=== PATIENT | male | born 1955 | race Caucasian/White ===

== ENCOUNTER 2020-07-11 19:11 | Inpatient (IN) | payer OTHER ==
[~2020-07-11] VITALS: Ht 175.3 cm; Wt 92.1 kg
[~2020-07-11 19:11] MED LIST: FLEXERIL PO; KEFLEX500 M1 PO; NORCO 5-325 TA1 EACH PO
[2020-07-11 19:39] VITALS: BP 108/42
[2020-07-11 19:55] LABS: URINE BLOOD TRACE (Negative); URINE CLARITY SL CLOUDY; URINE COLOR DARK YELLOW; URINE GLUCOSE-RANDOM NEGATIVE (Negative); URINE KETONES TRACE (Negative); URINE LEUKOCYTES-REFLEX NEGATIVE (Negative); URINE PROTEIN TRACE (Negative); URINE SPECIFIC GRAVITY 1.025 (1.005-1.030)
[2020-07-11 19:59] LABS: URINE BILIRUBIN 2+ (Negative); URINE NITRITE-REFLEX POSITIVE (Negative)
[2020-07-11 20:02] LABS: HEMATOCRIT 37.8 % (42.0-52.0); HEMOGLOBIN 12.6 gm/dL (14.0-18.0); MCH 33.4 pg (26.0-34.0); MCHC 33.4 g/dL (28.0-37.0); MCV 99.8 fL (80.0-100.0); MPV 9.4 fl. (7.2-11.1); NUCLEATED RBCS 0 /100WBC; PLATELET COUNT* 108 thou/uL (150-400); RBC 3.78 mil/uL (4.50-6.00); RDW-CV 15.7 % (10.5-14.5); WBC 4.2 thou/uL (4.0-11.0)
[2020-07-11 20:13] LABS: ICTOTEST (BILI CONFIRMATORY) Positive (Negative)
[2020-07-11 20:16] LABS: INR 1.4; PROTIME 14.6 Seconds (9.20-11.50)
[2020-07-11 20:27] LABS: BE -2.3 mmol/L (-2 to +3); PO2 100.6 mmHg (75.0-100.0); pH 7.485 (7.340-7.450)
[2020-07-11 21:00] LABS: HYALINE CASTS >10 Many /LPF (None Seen)
[2020-07-11 21:01] LABS: BACTERIA-REFLEX 1-9 Few /HPF (None Seen); CRYSTALS None Seen /LPF (None Seen); MUCUS 0-3 Light strn/LPF (None Seen); SQUAMOUS 4-10 Moderate /LPF (0-3); URINE RBC 0-2 Rare /HPF (0-2); URINE WBC-REFLEX 0-5 Rare /HPF (0-5)
[2020-07-11 21:10] LABS: CALCIUM 8.5 mg/dL (8.5-10.1); CREATININE 1.4 mg/dL (0.6-1.3); POTASSIUM 3.9 mmol/L (3.5-5.1)
[2020-07-11 21:20] LABS: ALBUMIN 2.7 g/dL (3.4-5.0); MAGNESIUM 1.4 mg/dL (1.8-2.4); TOTAL BILIRUBIN 3.8 mg/dL (<0.1-1.0); TOTAL PROTEIN 7.2 g/dL (6.4-8.2)
[2020-07-11 21:33] LABS: ABSOLUTE LYMPHOCYTES 0.4 thou/uL (0.8-5.3); ABSOLUTE NEUTROPHILS 3.7 thou/uL (1.6-8.1)
[2020-07-11 21:34] LABS: PLATELET ESTIMATE ADEQUATE
[2020-07-11 23:53] VITALS: BP 95/62
[2020-07-12] VITALS (111 sets, daily range): BP systolic 50–132; BP diastolic 31–102
[2020-07-12 10:47] LABS: HEMATOCRIT 33.2 % (42.0-52.0); HEMOGLOBIN 11.1 gm/dL (14.0-18.0); MCH 33.7 pg (26.0-34.0); MCHC 33.5 g/dL (28.0-37.0); MCV 100.6 fL (80.0-100.0); NUCLEATED RBCS 0 /100WBC; PLATELET COUNT* 101 thou/uL (150-400); WBC 25.3 thou/uL (4.0-11.0)
[2020-07-12 11:00] LABS: CALCIUM 7.2 mg/dL (8.5-10.1); CREATININE 1.7 mg/dL (0.6-1.3); MAGNESIUM 1.1 mg/dL (1.8-2.4); PHOSPHORUS* 3.8 mg/dL (2.5-4.9); TOTAL BILIRUBIN 3.2 mg/dL (<0.1-1.0); TOTAL PROTEIN 5.9 g/dL (6.4-8.2)
[2020-07-12 11:10] LABS: ABSOLUTE MONOCYTES 0.8 thou/uL (0.0-1.2); ABSOLUTE NEUTROPHILS 23.5 thou/uL (1.6-8.1); ATYPICAL LYMPHS 3 %; PLATELET ESTIMATE ADEQUATE
--- NOTE | 2020-07-12 12:48 | CON ---
[address] [address] CONSULTATION Name: KIMBERLY MERCADO Room: [address] IN M.R.#: [id number] Admission: 07/11/20 Attend Phys: Delmi Lea MD Discharge: Date of : 57 Report #: [id number] THIS REPORT FOR: //name// cc: Bentley Song MD, Joseph G. MD ~ THIS REPORT FOR: //name// CC: Bentley Lea DATE OF SERVICE: 07/12/2020 CONSULT REQUESTED BY: Petey Rodriguez MD INDICATION FOR CONSULTATION: Acute respiratory failure/pulmonary infiltrates/pneumonia. HISTORY OF PRESENT ILLNESS: This is a 64-year-old gentleman. He has a previous history of diabetes as well as benign prostatic hypertrophy. The patient, however, does not have a previous history of cardiac or respiratory disease. The patient has now been sick for the last several months. The patient's primary complaint has been an increase in shortness of breath. [facility] and a [facility]esis was performed at the [facility], was found to have a large pleural effusion on the right side. I do have the records available and it shows transudative fluid, cytology was still pending. He has just had thoracentesis performed about a week ago. The patient now presented to this hospital with acute increase in shortness of breath. The patient also was noted to have a high-grade fever up to 39.6 degrees Celsius. He on presentation was found to be hypotensive. Currently, despite the fact that he has received 3 liters of fluid overnight, the patient is on Levophed at 18 mcg to maintain blood pressure. He has had minimal urine output and his creatinine is rising. His baseline creatinine is 1.0 and we are up to 1.7 now. The patient reports no other complaints other than shortness of breath, although he does appear to be comfortable on 3 liters oxygen via nasal cannula at this time. He reports only minor cough, no sputum, no chest pain. He says he is being currently treated for a tooth abscess and has had discomfort with it. Does not have a runny nose or sore throat. There is no swelling of lower extremities. There is no calf pain. He did have one episode of vomiting. The patient does have some discomfort from the urinary catheter and did have difficulty urinating earlier. REVIEW OF SYSTEMS: For 12 points is negative except as mentioned above. PAST MEDICAL HISTORY: Diabetes, hypertension, benign prostatic hypertrophy, tonsillectomy. There is a previous echo from 2014 [place] [address] CONSULTATION Name: MERCADOKIMBERLY Room: [address] IN ..#: [id number] Admission: 07/11/20 Attend Phys: Delmi Lea MD Discharge: Date of : 57 Report #: [id number] Recent Dental Abscess SOCIAL HISTORY: The patient chews tobacco. He had an intake of 6 beers a day back in 2014, is not known to me as to whether the patient's alcohol intake is current. No known history of illegal drug use. CURRENT MEDICATIONS: The list is in [facility], reviewed. FAMILY HISTORY: There is no pertinent family history. ALLERGIES: No known drug allergies. PHYSICAL EXAMINATION: GENERAL/VITAL SIGNS: He is an alert, awake and oriented, does not appear to be in any distress at this time, but he is on 18 of Levophed and with this he is maintaining a blood pressure of only 94/52 with a pulse of 92. His respiratory rate is mildly elevated to 25. He is afebrile at 36.7, but had a high-grade fever of 39.6 overnight, the patient is on 3 liters nasal cannula and has an O2 saturation of 96%. He has not been on supplemental oxygen previously. HEENT: Head is normocephalic and atraumatic. NECK: Does not show raised JVP, asymmetry, mass or lymph nodes. CHEST: Symmetrical expansion on inspection and palpation. On auscultation, breath sounds are decreased at the right lung base. I do not hear any added sounds. HEART: Regular. There is no murmur. ABDOMEN: Soft and nontender. EXTREMITIES: Lower extremities show no edema, no calf tenderness. SKIN: Dry and intact. NEUROLOGICAL: Moves all extremities bilaterally equally and spontaneously with no focal deficit identified. LABORATORY DATA: The patient's CT chest is reviewed. There is a large pleural effusion on the right side. There may be summarized at hemidiaphragm on the right side as well. The patient does have some infiltrates. Due to the presence of these findings, I am not able to fully evaluate for any underlying mass. The patient's arterial blood gas performed yesterday shows respiratory alkalosis and metabolic acidosis. The patient's lab work from this morning is consistent with acute renal failure. The patient's D-dimer was markedly elevated. INR is 1.4. CBC in [facility] reviewed. Platelet count on the lower side at 101 is noted. The patient's coronavirus screen is negative, but PCR is pending. [facility] and this is also reviewed. ASSESSMENT AND PLAN: 1. Acute respiratory insufficiency. The etiology does need to be defined further while there are several possibilities. One possible scenario could be that the patient has an underlying hepatic hydrothorax. Considering that the [address] [address] CONSULTATION Name: MERCADOKIMBERLY Room: [address] IN .R.#: [id number] Admission: 07/11/20 Attend Phys: Delmi Lea MD Discharge: Date of : 57 Report #: [id number] pleural tap performed at the [facility] was a transudate with a protein of 1.4. However, the patient has had a high-grade fever now and at this points towards a superimposed infection, this could be bacterial pneumonia, but viral infections such as COVID-19 also need to be considered. 2. Large transudative right-sided pleural effusion. See discussion above. It was a transudate on the last thoracentesis. We will repeat tap now and see where we stand. I considered as to whether we should put in a pigtail; however, the patient has had significant hypotension and therefore, I decided to only proceed with thoracentesis now while understanding that a repeat thoracentesis or pigtail placement may be needed later. 3. Pulmonary infiltrates/high low-grade fever/Dental Abscess. The patient is on broad-spectrum antibiotics including vancomycin, Levaquin and Zosyn. I agree with the same and COVID-19 PCR is pending at this time. 4. Hypotension. I will go ahead and bolus him with albumin and see where we stand. We will continue with normal saline. If the patient remains hypotensive, then we will consider adding hydrocortisone. 5. Acute renal failure/Possible Hepatorenal Syndrome. Note that the patient's creatinine from last week is 1.0. He is in acute renal failure. We will continue with aggressive fluid resuscitation as well as albumin as above. We will also do an abdominal ultrasound. I would like to check an ABG again and then decide as to whether we need to add sodium bicarbonate, pH was in fact high last night. We will reassess and see where we stand. 6. Abnormal LFTs, significant elevation in bilirubin and also some transaminitis is noted. There was mild elevation in lipase last night, also will repeat a lipase level now. The possibility of underlying hepatic hydrothorax is considered as above. 7. Thrombocytopenia, mild decrease in platelets is noted. Follow closely. The patient is critically ill at this time. Total time spent providing critical care to this patient today exceeds 50 minutes. <ELECTRONICALLY SIGNED> By: Mello Pappas MD 07/12/20 1248 1149 1224Aruy Pappas MD /nt
--- NOTE | 2020-07-12 13:16 | EKG ---
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 : 1955 Requested By: Gela Bustos Order Number: [id number] MD: Eduardo Amato Measurements Intervals [place] Rate: 122 P: 246 RI: 104 QRS: 87 QRSD: 93 T: -19 QT: 342 QTc: 488 Interpretive Statements Sinus or ectopic atrial tachycardia Borderline right axis deviation Low voltage, extremity leads Minimal ST depression Borderline prolonged QT interval Baseline wander in lead(s) I,III,aVL,aVF No previous ECG available for comparison Electronically Signed On 07-12-2020 13:16:41 CDT by Eduardo Amato [email or web address] <ELECTRONICALLY SIGNED> By: Eduardo Amato MD, FACC 07/12/20 1316 29 29 Eduardo Amato MD, FAC /EPI
[2020-07-12 14:32] LABS: BE -10.8 mmol/L (-2 to +3); PCO2 27.4 mmHg (35.0-45.0); PO2 75.5 mmHg (75.0-100.0)
[2020-07-12 16:19] LABS: SOURCE THORACENTESIS; TOTAL VOLUME 3200 ml
[2020-07-12 16:20] LABS: CLARITY SLIGHTLY CLOUDY
[2020-07-12 16:28] LABS: BF RBC <1000 /mm3; TOTAL CELL COUNT 199 /mm3
[2020-07-12 16:56] LABS: BF LYMPHOCYTES 13 %; BF MONOCYTES 69 %; BF POLYS 18 %
[2020-07-12 18:54] LABS: ABSOLUTE LYMPHOCYTES 0.2 thou/uL (0.8-5.3); ABSOLUTE MONOCYTES 0.9 thou/uL (0.0-1.2); ABSOLUTE NEUTROPHILS 21.8 thou/uL (1.6-8.1); BASOPHILS 0.2 %; HEMATOCRIT 30.6 % (42.0-52.0); HEMOGLOBIN 10.4 gm/dL (14.0-18.0); LYMPHOCYTES 0.9 %; MCV 100.2 fL (80.0-100.0); MONOCYTES 3.9 %; MPV 10.1 fl. (7.2-11.1); NUCLEATED RBCS 0 /100WBC; PLATELET COUNT* 87 thou/uL (150-400); RBC 3.05 mil/uL (4.50-6.00); RDW-CV 15.9 % (10.5-14.5)
[2020-07-12 19:03] LABS: CALCIUM 7.5 mg/dL (8.5-10.1); CREATININE 1.6 mg/dL (0.6-1.3); POTASSIUM 4.1 mmol/L (3.5-5.1)
[2020-07-13] VITALS (84 sets, daily range): BP systolic 86–137; BP diastolic 42–94
[2020-07-13 04:57] LABS: ABSOLUTE LYMPHOCYTES 0.5 thou/uL (0.8-5.3); ABSOLUTE MONOCYTES 1.2 thou/uL (0.0-1.2); ABSOLUTE NEUTROPHILS 20.8 thou/uL (1.6-8.1); BASOPHILS 0.1 %; HEMOGLOBIN 10.3 gm/dL (14.0-18.0); LYMPHOCYTES 2.3 %; MCH 34.1 pg (26.0-34.0); MCHC 34.3 g/dL (28.0-37.0); MCV 99.3 fL (80.0-100.0); MONOCYTES 5.4 %; NUCLEATED RBCS 0 /100WBC; PLATELET COUNT* 84 thou/uL (150-400); POLYS 92.2 %; RBC 3.02 mil/uL (4.50-6.00); RDW-CV 15.8 % (10.5-14.5); WBC 22.5 thou/uL (4.0-11.0)
[2020-07-13 05:31] LABS: ALBUMIN 2.7 g/dL (3.4-5.0); CALCIUM 7.6 mg/dL (8.5-10.1); CREATININE 1.2 mg/dL (0.6-1.3); PHOSPHORUS* 2.2 mg/dL (2.5-4.9); POTASSIUM 3.9 mmol/L (3.5-5.1); TOTAL BILIRUBIN 2.9 mg/dL (<0.1-1.0); TOTAL PROTEIN 6.1 g/dL (6.4-8.2)
[2020-07-13 05:45] LABS: PHOSPHORUS* 2.2 mg/dL (2.5-4.9)
[2020-07-13 10:07] LABS: HEPATITIS B SURFACE AG Negative (Negative)
--- NOTE | 2020-07-13 10:17 | CON ---
[address] [address] CONSULTATION Name: KIMBERLY MERCADO Room: [address] IN M.R.#: [id number] Admission: 07/11/20 Attend Phys: Delmi Lea MD Discharge: Date of : 57 Report #: [id number] THIS REPORT FOR: //name// cc: Bentley Song MD, Joseph G. MD ~ THIS REPORT FOR: //name// CC: Bentley Lae CONSULTING PHYSICIAN: Dr. Lea. REASON FOR CONSULTATION: Acute kidney injury. HISTORY OF PRESENT ILLNESS: A 64-year-old gentleman who was admitted with malaise and pneumonia. He had severely low blood pressures, was recently [facility]. Had a pleural effusion and underwent thoracentesis. Here, he also has a moderate to large pleural effusion with plans for a thoracentesis today. He had a bump in his creatinine from 1.4 on admission to 1.7. He is currently requiring Levophed. He has also been started on stress-dose steroids. He did have a CT scan with IV contrast and history is obtained through chart review. REVIEW OF SYSTEMS: Constitutional, psych, heme, eyes, ENT, respiratory, cardiac, GI, , endocrine, all negative except as documented above and as best as can be ascertained from chart review. PAST MEDICAL HISTORY: Diabetes, hypertension, BPH, history of tonsillectomy. SOCIAL HISTORY: Positive for alcohol and tobacco. FAMILY HISTORY: Not pertinent in this 64-year-old gentleman. CURRENT MEDICATIONS: Reviewed. PHYSICAL EXAMINATION: VITAL SIGNS: Blood pressure is 84/50, pulse 92, respirations 25, temperature 36.7. GENERAL: No acute distress. NEUROLOGIC: Full exam is not performed as the patient is in COVID-19 precautions in an effort to preserve PPE. He was not examined, the proper PPE gowns are not available during the time of my visit with the patient. LABORATORY DATA: White cell count 25, hemoglobin 11.1, platelets 101. Sodium 134, potassium 4, chloride 103, bicarbonate 17, BUN 15, creatinine 1.7, glucose 151, calcium 7.2, magnesium 1.1, albumin 2. [place] [address] CONSULTATION Name: KIMBERLY MERCADO Room: [address] IN [facility]#: [id number] Admission: 07/11/20 Attend Phys: Delmi Lea MD Discharge: Date of : 57 Report #: [id number] ASSESSMENT: 1. Acute kidney injury with admission creatinine of 1.4. Outside records reviewed. On 06/20/2020 at the [facility], he had a creatinine of 0.8, it is up to 1.7 now on 07/12/2020. This is in the setting of high fevers and significant hypotension. He also did have 80 mL of contrast as part of a CT angiogram. 2. Hypoalbuminemia with an albumin of 2. 3. Septic shock, multifactorial with urinary tract infection, dental abscess of right lung pneumonia with pleural effusion. 4. Lactic acidosis with respiratory alkalosis and a delta gap of 2 suggesting a metabolic alkalosis. 5. Diabetes. 6. Benign prostatic hypertrophy. PLAN: 1. Hypomagnesemia. Magnesium was replaced. 2. Check abdominal ultrasound. 3. Caution vancomycin use in the setting of renal insufficiency. He is on antibiotic therapy in addition to hydrocortisone and vasopressors 4. On IV fluids. 5. Gold catheter placed. He is producing about 20 mL of urine output per hour. 6. IV albumin ordered by Pulmonary service. 7. Outpatient records reviewed. Case was discussed with Dr. Rodriguez. There was a concern for possible hepatorenal syndrome. I do not see any strong indication for this at present time and rather this is likely ischemic acute tubular necrosis in the setting of severe hypotension and shock. Thank you for requesting my opinion in the care and management of this patient. <ELECTRONICALLY SIGNED> By: William Delaney MD 07/13/20 1017 1510 1522Aleyla Delaney MD /nt
[2020-07-13 11:07] LABS: BODY FLUID AMYLASE 13 U/L (()); BODY FLUID LDH 54 IU/L (()); BODY FLUID PROTEIN 0.8 g/dL (())
[2020-07-13 12:26] LABS: BE -4.5 mmol/L (-2 to +3); PCO2 VENOUS 32.7 mmHg (41.0-51.0); PO2 VENOUS 102.1 mmHg (35.0-45.0)
--- NOTE | 2020-07-13 12:33 | 2DMMODE ---
[place] [address] 2 D/M-MODE ECHOCARDIOGRAM Name: DOE MERCADO Room: [address] IN [facility]#: [id number] Admission: 07/11/20 Attend Phys: Delmi Lea, Discharge: Date of : 57 Date of Service: 07/13/20 1233 Report #: [id number] THIS REPORT FOR: cc: Bentley Song MD, Joseph G. MD Liston, Michael J. MD [facility] ~ APPROVED REPORT Study performed: 07/13/2020 10:42:43 EXAM: Comprehensive 2D, Doppler, and color-flow Echocardiogram Patient Location: In-Patient Room #: [facility] Status: routine BSA: 2.07 HR: 79 bpm BP: 115/63 mmHg Rhythm: NSR Other Information Study Quality: Good Indications Sepsis Dyspnea 2D Dimensions IVSd: 11.45 (7-11mm) LVOT Diam: 18.92 (18-24mm) LVDd: 50.14 mm PWd: 10.65 (7-11mm) Ascending Ao: 35.52 (22-36mm) LVDs: 30.50 (25-40mm) Aortic Root: 35.46 mm Volumes Left Atrial Volume (Systole) LA ESV Index: 49.80 mL/m2 Aortic Valve AoV Peak Vaughn.: 2.92 m/s AO Peak Gr.: 34.13 mmHg LVOT Max P.62 mmHg AO Mean Gr.: 20.58 mmHg LVOT Mean P.18 mmHg LVOT Max V: 1.29 m/s AO V2 VTI: 65.89 cm LVOT Mean V: 0.81 m/s MARTHA (VTI): 1.20 cm2 LVOT V1 VTI: 28.22 [place] [address] 2 D/M-MODE ECHOCARDIOGRAM Name: DOE MERCADO Room: [address] IN [facility]#: [id number] Admission: 07/11/20 Attend Phys: Delmi Lea, Discharge: Date of : 57 Date of Service: 07/13/20 1233 Report #: [id number] Mitral Valve E/A Ratio: 1.51 MV Decel. Time: 219.63 ms MV E Max Vaughn.: 1.08 m/s MV PHT: 63.69 ms MVA (PHT): 3.45 cm2 TDI E/Lateral E': 6.00 E/Medial E': 12.00 Medial E' Vaughn.: 0.09 m/s Lateral E' Vaughn.: 0.18 m/s Pulmonary Valve PV Peak Vaughn.: 1.14 m/s PV Peak Gr.: 5.17 mmHg Tricuspid Valve RAP Estimate: 15.00 mmHg TR Peak Gr.: 22.26 mmHg RVSP: 37.00 mmHg PA Pressure: 37.00 mmHg Left Ventricle The left ventricle is normal size. There is normal LV segmental wall motion. There is normal left ventricular wall thickness. Left ventricular systolic function is normal. LVEF is 55-60%. Grade II - pseudonormal filling dynamics. Right Ventricle Right ventricle is dilated. The right ventricular systolic function is normal. Atria Left atrium is moderately dilated. Right atrium is moderately dilated. Aortic Valve Moderate aortic valve sclerosis. No aortic regurgitation is present. Moderate aortic stenosis. Mitral Valve The mitral valve is normal in structure. There is no mitral valve regurgitation noted. No evidence of mitral valve stenosis. Tricuspid Valve The tricuspid valve is normal in structure. Trace tricuspid regurgitation. [place] [address] 2 D/M-MODE ECHOCARDIOGRAM Name: DOE MERCADO Christine Room: [address]#: [id number] Admission: 07/11/20 Attend Phys: Delmi Lea, Discharge: Date of : 57 Date of Service: 07/13/20 1233 Report #: [id number] Pulmonic Valve The pulmonary valve is normal in structure. There is no pulmonic valvular regurgitation. Great Vessels The aortic root is normal in size. IVC is dilated and collapses <50% with inspiration. Pericardium There is no pericardial effusion. <Conclusion> The left ventricle is normal size. There is normal left ventricular wall thickness. Left ventricular systolic function is normal. LVEF is 55-60%. Grade II - pseudonormal filling dynamics. There is normal LV segmental wall motion. Left atrium is moderately dilated. Right atrium is moderately dilated. Moderate aortic valve sclerosis. Moderate aortic stenosis. Trace tricuspid regurgitation. Mild pulmonary hypertension. IVC is dilated and collapses <50% with inspiration. <ELECTRONICALLY SIGNED> By: Doe Clark MD, FACC 07/13/20 1233 1233 1233 Doe Clark MD, FACC /INF
[2020-07-13 18:31] LABS: CALCIUM 7.9 mg/dL (8.5-10.1); CREATININE 1.1 mg/dL (0.6-1.3)
[2020-07-14] VITALS (48 sets, daily range): BP systolic 78–126; BP diastolic 44–83
[2020-07-14 05:17] LABS: ABSOLUTE LYMPHOCYTES 0.8 thou/uL (0.8-5.3); ABSOLUTE MONOCYTES 1.2 thou/uL (0.0-1.2); ABSOLUTE NEUTROPHILS 16.5 thou/uL (1.6-8.1); BASOPHILS 0.1 %; EOSINOPHILS 0.1 %; HEMATOCRIT 28.5 % (42.0-52.0); HEMOGLOBIN 9.8 gm/dL (14.0-18.0); LYMPHOCYTES 4.2 %; MCH 33.9 pg (26.0-34.0); MCHC 34.3 g/dL (28.0-37.0); MCV 98.8 fL (80.0-100.0); MONOCYTES 6.7 %; MPV 10.7 fl. (7.2-11.1); NUCLEATED RBCS 0 /100WBC; PLATELET COUNT* 82 thou/uL (150-400); POLYS 88.9 %; RBC 2.88 mil/uL (4.50-6.00); RDW-CV 16.1 % (10.5-14.5); WBC 18.6 thou/uL (4.0-11.0)
[2020-07-14 05:38] LABS: APTT 32.4 Seconds (25.0-31.3); INR 1.5; PROTIME 15.2 Seconds (9.20-11.50)
[2020-07-14 05:58] LABS: ALBUMIN 2.8 g/dL (3.4-5.0); CALCIUM 7.6 mg/dL (8.5-10.1); CREATININE 0.9 mg/dL (0.6-1.3); MAGNESIUM 2.1 mg/dL (1.8-2.4); POTASSIUM 3.8 mmol/L (3.5-5.1); TOTAL BILIRUBIN 2.6 mg/dL (<0.1-1.0); TOTAL PROTEIN 5.9 g/dL (6.4-8.2)
[2020-07-14 15:07] LABS: BODY FLUID PH 7.5 (Not Estab.)
[2020-07-14 17:17] LABS: SOURCE THORACENTESIS
[2020-07-15] VITALS (42 sets, daily range): BP systolic 75–120; BP diastolic 36–83
[2020-07-15 05:38] LABS: ABSOLUTE LYMPHOCYTES 0.9 thou/uL (0.8-5.3); ABSOLUTE MONOCYTES 0.9 thou/uL (0.0-1.2); ABSOLUTE NEUTROPHILS 11.4 thou/uL (1.6-8.1); BASOPHILS 0.1 %; LYMPHOCYTES 6.6 %; MCH 33.9 pg (26.0-34.0); MCHC 34.3 g/dL (28.0-37.0); MONOCYTES 7.1 %; MPV 10.6 fl. (7.2-11.1); NUCLEATED RBCS 0 /100WBC; PLATELET COUNT* 76 thou/uL (150-400); POLYS 86.2 %; RBC 2.94 mil/uL (4.50-6.00); RDW-CV 15.9 % (10.5-14.5); WBC 13.3 thou/uL (4.0-11.0)
[2020-07-15 05:58] LABS: ALBUMIN 2.5 g/dL (3.4-5.0); CALCIUM 7.7 mg/dL (8.5-10.1); CREATININE 0.8 mg/dL (0.6-1.3); MAGNESIUM 2.1 mg/dL (1.8-2.4); POTASSIUM 3.9 mmol/L (3.5-5.1); TOTAL BILIRUBIN 2.4 mg/dL (<0.1-1.0); TOTAL PROTEIN 5.7 g/dL (6.4-8.2)
[2020-07-16] VITALS (38 sets, daily range): BP systolic 80–133; BP diastolic 48–83
[2020-07-16 08:19] LABS: ABSOLUTE LYMPHOCYTES 0.7 thou/uL (0.8-5.3); ABSOLUTE MONOCYTES 1.5 thou/uL (0.0-1.2); ABSOLUTE NEUTROPHILS 8.4 thou/uL (1.6-8.1); BASOPHILS 0.2 %; HEMATOCRIT 29.3 % (42.0-52.0); MCH 33.8 pg (26.0-34.0); MCHC 34.1 g/dL (28.0-37.0); MONOCYTES 13.8 %; MPV 10.2 fl. (7.2-11.1); NUCLEATED RBCS 0 /100WBC; PLATELET COUNT* 74 thou/uL (150-400); RBC 2.96 mil/uL (4.50-6.00); RDW-CV 16.1 % (10.5-14.5); WBC 10.6 thou/uL (4.0-11.0)
[2020-07-16 08:30] LABS: ALBUMIN 2.6 g/dL (3.4-5.0); CALCIUM 7.8 mg/dL (8.5-10.1); CREATININE 0.8 mg/dL (0.6-1.3); POTASSIUM 3.6 mmol/L (3.5-5.1); TOTAL BILIRUBIN 2.4 mg/dL (<0.1-1.0); TOTAL PROTEIN 5.5 g/dL (6.4-8.2)
[2020-07-16] MEDS ORDERED: FLOMAX0.4 MG PO (14:50)
[2020-07-16] MEDS ORDERED: METFORMIN HCL500 M3 PO (14:50)
[2020-07-16] MEDS ORDERED: FOLIC ACID1 MG PO (14:51)
[2020-07-16] MEDS ORDERED: IRON325 M1 PO (14:57)
[2020-07-16] MEDS ORDERED: ASA81BEC PO (14:58)
[2020-07-16 19:46] LABS: CALCIUM 8.2 mg/dL (8.5-10.1); CREATININE 1.2 mg/dL (0.6-1.3); POTASSIUM 3.6 mmol/L (3.5-5.1)
[2020-07-17] VITALS (32 sets, daily range): BP systolic 88–142; BP diastolic 36–87
[2020-07-17 04:34] LABS: HEMATOCRIT 29.8 % (42.0-52.0); HEMOGLOBIN 10.1 gm/dL (14.0-18.0); MCH 33.6 pg (26.0-34.0); MCHC 34.1 g/dL (28.0-37.0); MCV 98.8 fL (80.0-100.0); MPV 10.5 fl. (7.2-11.1); NUCLEATED RBCS 0 /100WBC; PLATELET COUNT* 85 thou/uL (150-400); RBC 3.01 mil/uL (4.50-6.00); RDW-CV 15.8 % (10.5-14.5); WBC 11.9 thou/uL (4.0-11.0)
[2020-07-17 04:43] LABS: APTT 26.6 Seconds (25.0-31.3); INR 1.6; PROTIME 16.3 Seconds (9.20-11.50)
[2020-07-17 04:49] LABS: PREALBUMIN 10.9 mg/dL (18.0-35.7)
[2020-07-17 04:54] LABS: ALBUMIN 2.8 g/dL (3.4-5.0); POTASSIUM 4.2 mmol/L (3.5-5.1); TOTAL BILIRUBIN 2.9 mg/dL (<0.1-1.0); TOTAL PROTEIN 5.9 g/dL (6.4-8.2)
[2020-07-17 06:10] LABS: ABSOLUTE MONOCYTES 0.6 thou/uL (0.0-1.2); ABSOLUTE NEUTROPHILS 9.3 thou/uL (1.6-8.1); MYELOCYTES 1 %
[2020-07-17 06:11] LABS: ANISOCYTOSIS 1+; PLATELET ESTIMATE DECREASED; POIKILOCYTOSIS 1+
--- NOTE | 2020-07-17 07:38 | PATH ---
[address] [address] PATHOLOGY RPT PROCEDURE Name: KIMBERLY MERCADO Room: [address] IN [facility]#: [id number] Admission: 07/11/20 Date of : 57 Discharge: Report #: [id number] Path Case #: [id number] Note [facility] Accession Number: [id number] TESTS RESULT FLAG UNITS REF RANGE LAB Clinician Provided Cytology Information No. of containers..01 Other (Miscellaneous) Source: RT PLEURAL FLUID DIAGNOSIS: RT PLEURAL FLUID NEGATIVE FOR MALIGNANT CELLS. REACTIVE MESOTHELIAL CELLS AND FEW INFLAMMATORY CELLS. THIS INTERPRETATION INCLUDES EVALUATION OF A CELL BLOCK. Signed out by: 02 James Shanks MD, Pathologist NPI- [id number] Performed by: 01 Carmen Dennison, [employer] Spool Straightener ([facility] [place] Gross description: 01 50ML, CLOUDY YELLOW, 1 TP 1 CB /LCS 07/13/2020 1138 Local FLAG LEGEND: L-Low Normal,H-High Normal,LL-Alert Low,HH-Alert High <-Panic Low,>-Panic High,A-Abnormal,AA-Critical Abnormal Performed at: [address] [place] [address] Weston Patrick MD, [address] [place] [address] [address] [facility], [place] [address] James Shanks MD, Specimen Comment: A courtesy copy of this report has been sent to [phone] Specimen Comment: Report sent to / DR WEBB Specimen Comment: Report sent to Specimen Comment: A duplicate report has been generated due to demographic updates. Performed at: [address], [place], [place] [id number] MD Weston Patrick MD Phone: [phone]
[2020-07-17 16:06] LABS: CLARITY SLIGHTLY HAZY; SOURCE THORACENTESIS; TOTAL VOLUME 4200 ml
[2020-07-17 16:07] LABS: BF RBC 548 /mm3; TOTAL CELL COUNT 144 /mm3
[2020-07-17 16:13] LABS: BF LYMPHOCYTES 16 %; BF MONOCYTES 2 %; BF POLYS 31 %; BF TISSUE 51 /100 WBC
[2020-07-17 19:13] LABS: CALCIUM 8.2 mg/dL (8.5-10.1); CREATININE 1.2 mg/dL (0.6-1.3)
[2020-07-17 19:16] LABS: INR 1.6; PROTIME 16.2 Seconds (9.20-11.50)
[2020-07-18] VITALS (7 sets, daily range): BP systolic 91–129; BP diastolic 47–76
[2020-07-18 06:22] LABS: ABSOLUTE LYMPHOCYTES 0.5 thou/uL (0.8-5.3); ABSOLUTE MONOCYTES 1.2 thou/uL (0.0-1.2); ABSOLUTE NEUTROPHILS 7.1 thou/uL (1.6-8.1); BASOPHILS 0.5 %; HEMOGLOBIN 9.3 gm/dL (14.0-18.0); LYMPHOCYTES 6.1 %; MCHC 34.4 g/dL (28.0-37.0); MCV 98.8 fL (80.0-100.0); MONOCYTES 13.1 %; MPV 10.5 fl. (7.2-11.1); NUCLEATED RBCS 0 /100WBC; PLATELET COUNT* 78 thou/uL (150-400); POLYS 80.3 %; RBC 2.73 mil/uL (4.50-6.00); RDW-CV 16.3 % (10.5-14.5); WBC 8.8 thou/uL (4.0-11.0)
[2020-07-18 06:32] LABS: APTT 26.8 Seconds (25.0-31.3); INR 1.6; PROTIME 16.6 Seconds (9.20-11.50)
[2020-07-18 06:41] LABS: PREALBUMIN 10.6 mg/dL (18.0-35.7)
[2020-07-18 07:12] LABS: ALBUMIN 2.6 g/dL (3.4-5.0); CALCIUM 8.1 mg/dL (8.5-10.1); POTASSIUM 4.2 mmol/L (3.5-5.1); TOTAL BILIRUBIN 2.8 mg/dL (<0.1-1.0); TOTAL PROTEIN 5.3 g/dL (6.4-8.2)
[2020-07-18 13:08] LABS: BODY FLUID LDH 30 IU/L (()); BODY FLUID PROTEIN 0.8 g/dL (())
[2020-07-18 21:05] LABS: ANA INTERPRETATION Negative (())
[2020-07-19] VITALS: BP 127/75
[2020-07-19 04:00] VITALS: BP 135/67
[2020-07-19 05:42] LABS: ABSOLUTE MONOCYTES 1.7 thou/uL (0.0-1.2); ABSOLUTE NEUTROPHILS 10.7 thou/uL (1.6-8.1); BASOPHILS 0.1 %; HEMOGLOBIN 9.6 gm/dL (14.0-18.0); LYMPHOCYTES 7.3 %; MCH 33.4 pg (26.0-34.0); MCHC 34.3 g/dL (28.0-37.0); MCV 97.2 fL (80.0-100.0); MONOCYTES 12.4 %; MPV 9.4 fl. (7.2-11.1); NUCLEATED RBCS 0 /100WBC; PLATELET COUNT* 85 thou/uL (150-400); POLYS 80.2 %; RBC 2.88 mil/uL (4.50-6.00); RDW-CV 16.1 % (10.5-14.5); WBC 13.3 thou/uL (4.0-11.0)
[2020-07-19 05:51] LABS: INR 1.7; PROTIME 16.9 Seconds (9.20-11.50)
[2020-07-19 06:10] LABS: ALBUMIN 2.6 g/dL (3.4-5.0); CALCIUM 7.9 mg/dL (8.5-10.1); CREATININE 0.9 mg/dL (0.6-1.3); TOTAL PROTEIN 5.4 g/dL (6.4-8.2)
[2020-07-19 10:22] LABS: SOURCE PLEURAL
[2020-07-19 12:00] VITALS: BP 121/56
[2020-07-19 16:47] VITALS: BP 145/84
[2020-07-19 20:08] VITALS: BP 129/74
[2020-07-20] VITALS: BP 111/60
[2020-07-20 03:06] LABS: IgG 813 mg/dL (603-1613); IgM 132 mg/dL (20-172)
[2020-07-20 04:00] VITALS: BP 117/70
[2020-07-20 06:16] LABS: ABSOLUTE BASOPHILS 0.1 thou/uL (0.0-0.2); ABSOLUTE LYMPHOCYTES 1.1 thou/uL (0.8-5.3); ABSOLUTE MONOCYTES 1.8 thou/uL (0.0-1.2); ABSOLUTE NEUTROPHILS 12.3 thou/uL (1.6-8.1); BASOPHILS 0.9 %; EOSINOPHILS 0.1 %; HEMOGLOBIN 10.2 gm/dL (14.0-18.0); LYMPHOCYTES 7.3 %; MCH 33.2 pg (26.0-34.0); MCV 97.6 fL (80.0-100.0); MONOCYTES 11.8 %; MPV 9.7 fl. (7.2-11.1); NUCLEATED RBCS 0 /100WBC; PLATELET COUNT* 95 thou/uL (150-400); POLYS 79.9 %; RBC 3.08 mil/uL (4.50-6.00); RDW-CV 16.2 % (10.5-14.5); WBC 15.4 thou/uL (4.0-11.0)
[2020-07-20 06:28] LABS: INR 1.6; PREALBUMIN 11.8 mg/dL (18.0-35.7)
[2020-07-20 06:31] LABS: ALBUMIN 2.7 g/dL (3.4-5.0); MAGNESIUM 1.8 mg/dL (1.8-2.4); POTASSIUM 3.9 mmol/L (3.5-5.1); TOTAL BILIRUBIN 3.2 mg/dL (<0.1-1.0); TOTAL PROTEIN 5.6 g/dL (6.4-8.2)
--- NOTE | 2020-07-20 07:09 | PATH ---
[address] [address] PATHOLOGY RPT PROCEDURE Name: KIMBERLY MERCADO Room: [address] IN [facility]#: [id number] Admission: 07/11/20 Date of : 57 Discharge: Report #: [id number] Path Case #: [id number] Note [facility] Accession Number: [id number] TESTS RESULT FLAG UNITS REF RANGE LAB Clinician Provided Cytology Information No. of containers..01 Other (Miscellaneous) Source: PLEURAL FLUID DIAGNOSIS: 02 PLEURAL FLUID NEGATIVE FOR MALIGNANT CELLS. REACTIVE MESOTHELIAL CELLS AND FEW INFLAMMATORY CELLS. THIS INTERPRETATION INCLUDES EVALUATION OF A CELL BLOCK. Signed out by: 02 James Shanks MD, Pathologist NPI- [id number] Performed by: 01 Katerine Stafford, Surgical Technology Instructor ([facility]) Gross description: 01 50ML, CLOUDY YELLOW, 1 TP 1 CB /LCS 07/18/2020 1228 Local FLAG LEGEND: L-Low Normal,H-High Normal,LL-Alert Low,HH-Alert High <-Panic Low,>-Panic High,A-Abnormal,AA-Critical Abnormal Performed at: [address] [place] [address] Weston Patrick MD, [address] [place] [address] [place] [address] James Shanks MD, Specimen Comment: A courtesy copy of this report has been sent to [phone] Specimen Comment: [phone], Specimen Comment: Report sent to ,DR CASTRO / DR WEBB Specimen Comment: A duplicate report has been generated due to demographic updates. Performed at: [address], [place], [place] [id number] MD Weston Patrick MD Phone: [phone]
[2020-07-20 08:15] VITALS: BP 103/52
[2020-07-20 13:08] LABS: ANA INTERPRETATION Negative (Negative); CERULOPLASMIN 11.4 mg/dL (16.0-31.0)
[2020-07-20 17:34] LABS: ABSOLUTE BASOPHILS 0.1 thou/uL (0.0-0.2); ABSOLUTE EOSINOPHILS 0.1 thou/uL (0.0-0.7); ABSOLUTE LYMPHOCYTES 1.5 thou/uL (0.8-5.3); ABSOLUTE MONOCYTES 2.3 thou/uL (0.0-1.2); ABSOLUTE NEUTROPHILS 13.7 thou/uL (1.6-8.1); BASOPHILS 0.3 %; EOSINOPHILS 0.7 %; HEMATOCRIT 30.2 % (42.0-52.0); HEMOGLOBIN 10.2 gm/dL (14.0-18.0); LYMPHOCYTES 8.7 %; MCH 33.2 pg (26.0-34.0); MCHC 33.8 g/dL (28.0-37.0); MCV 98.3 fL (80.0-100.0); MONOCYTES 12.9 %; MPV 10.2 fl. (7.2-11.1); NUCLEATED RBCS 0 /100WBC; PLATELET COUNT* 98 thou/uL (150-400); POLYS 77.4 %; RBC 3.07 mil/uL (4.50-6.00); RDW-CV 15.9 % (10.5-14.5); WBC 17.7 thou/uL (4.0-11.0)
[2020-07-20 17:38] LABS: CALCIUM 8.1 mg/dL (8.5-10.1); CREATININE 1.1 mg/dL (0.6-1.3); MAGNESIUM 1.7 mg/dL (1.8-2.4); POTASSIUM 3.6 mmol/L (3.5-5.1)
[2020-07-20 21:15] VITALS: BP 138/79
[2020-07-21] VITALS: BP 126/65
[2020-07-21 04:00] VITALS: BP 114/59
[2020-07-21 05:32] LABS: ABSOLUTE EOSINOPHILS 0.1 thou/uL (0.0-0.7); ABSOLUTE LYMPHOCYTES 1.4 thou/uL (0.8-5.3); ABSOLUTE MONOCYTES 1.5 thou/uL (0.0-1.2); ABSOLUTE NEUTROPHILS 10.3 thou/uL (1.6-8.1); BASOPHILS 0.1 %; EOSINOPHILS 1.1 %; HEMATOCRIT 27.3 % (42.0-52.0); HEMOGLOBIN 9.3 gm/dL (14.0-18.0); LYMPHOCYTES 10.4 %; MCH 33.4 pg (26.0-34.0); MCHC 34.2 g/dL (28.0-37.0); MCV 97.6 fL (80.0-100.0); MONOCYTES 11.5 %; MPV 9.8 fl. (7.2-11.1); NUCLEATED RBCS 0 /100WBC; PLATELET COUNT* 80 thou/uL (150-400); POLYS 76.9 %; RDW-CV 16.1 % (10.5-14.5); WBC 13.4 thou/uL (4.0-11.0)
[2020-07-21 05:42] LABS: INR 1.5; PROTIME 15.7 Seconds (9.20-11.50)
[2020-07-21 05:56] LABS: ALBUMIN 2.9 g/dL (3.4-5.0); CALCIUM 7.9 mg/dL (8.5-10.1); CREATININE 0.9 mg/dL (0.6-1.3); POTASSIUM 4.3 mmol/L (3.5-5.1); TOTAL BILIRUBIN 3.3 mg/dL (<0.1-1.0); TOTAL PROTEIN 5.5 g/dL (6.4-8.2)
[2020-07-21 07:30] VITALS: BP 122/67
[2020-07-21 11:30] VITALS: BP 111/61
[2020-07-21 15:15] LABS: CALCIUM 8.3 mg/dL (8.5-10.1); POTASSIUM 4.6 mmol/L (3.5-5.1)
[2020-07-21 16:00] VITALS: BP 127/62
[2020-07-21 19:50] VITALS: BP 127/76
[2020-07-22] VITALS: BP 118/59
[2020-07-22 04:00] VITALS: BP 136/75
[2020-07-22 05:38] LABS: ABSOLUTE EOSINOPHILS 0.1 thou/uL (0.0-0.7); ABSOLUTE LYMPHOCYTES 1.1 thou/uL (0.8-5.3); ABSOLUTE MONOCYTES 1.1 thou/uL (0.0-1.2); ABSOLUTE NEUTROPHILS 8.6 thou/uL (1.6-8.1); BASOPHILS 0.3 %; EOSINOPHILS 0.6 %; HEMATOCRIT 25.6 % (42.0-52.0); HEMOGLOBIN 8.8 gm/dL (14.0-18.0); LYMPHOCYTES 9.7 %; MCH 33.4 pg (26.0-34.0); MCHC 34.3 g/dL (28.0-37.0); MCV 97.2 fL (80.0-100.0); MONOCYTES 10.4 %; NUCLEATED RBCS 0 /100WBC; PLATELET COUNT* 67 thou/uL (150-400); RBC 2.63 mil/uL (4.50-6.00); WBC 10.9 thou/uL (4.0-11.0)
[2020-07-22 06:03] LABS: ALBUMIN 3.2 g/dL (3.4-5.0); CALCIUM 8.4 mg/dL (8.5-10.1); CREATININE 0.8 mg/dL (0.6-1.3); MAGNESIUM 1.9 mg/dL (1.8-2.4); TOTAL BILIRUBIN 3.4 mg/dL (<0.1-1.0); TOTAL PROTEIN 5.4 g/dL (6.4-8.2)
[2020-07-22 08:00] VITALS: BP 111/55
[2020-07-22 15:48] VITALS: BP 139/70
[2020-07-23] VITALS: BP 110/53
[2020-07-23 04:00] VITALS: BP 102/56
[2020-07-23 05:29] LABS: ABSOLUTE EOSINOPHILS 0.2 thou/uL (0.0-0.7); ABSOLUTE LYMPHOCYTES 1.7 thou/uL (0.8-5.3); ABSOLUTE MONOCYTES 1.6 thou/uL (0.0-1.2); ABSOLUTE NEUTROPHILS 10.9 thou/uL (1.6-8.1); BASOPHILS 0.2 %; EOSINOPHILS 1.1 %; HEMATOCRIT 28.2 % (42.0-52.0); HEMOGLOBIN 9.6 gm/dL (14.0-18.0); LYMPHOCYTES 12.1 %; MCH 33.2 pg (26.0-34.0); MCV 97.5 fL (80.0-100.0); MONOCYTES 11.2 %; MPV 9.5 fl. (7.2-11.1); NUCLEATED RBCS 0 /100WBC; PLATELET COUNT* 81 thou/uL (150-400); POLYS 75.4 %; RDW-CV 16.2 % (10.5-14.5); WBC 14.4 thou/uL (4.0-11.0)
[2020-07-23 05:42] LABS: ALBUMIN 3.7 g/dL (3.4-5.0); CALCIUM 8.7 mg/dL (8.5-10.1); CREATININE 0.9 mg/dL (0.6-1.3); MAGNESIUM 1.6 mg/dL (1.8-2.4); PHOSPHORUS* 3.8 mg/dL (2.5-4.9); POTASSIUM 3.8 mmol/L (3.5-5.1); TOTAL BILIRUBIN 5.3 mg/dL (<0.1-1.0); TOTAL PROTEIN 6.1 g/dL (6.4-8.2)
[2020-07-23 08:00] VITALS: BP 111/62
[2020-07-23 11:23] VITALS: BP 113/63
[2020-07-23 16:38] VITALS: BP 140/71
[2020-07-23 20:00] VITALS: BP 109/53
[2020-07-24] VITALS: BP 107/64
[2020-07-24 04:00] VITALS: BP 111/75
[2020-07-24 04:46] LABS: ABSOLUTE EOSINOPHILS 0.2 thou/uL (0.0-0.7); ABSOLUTE LYMPHOCYTES 1.7 thou/uL (0.8-5.3); ABSOLUTE MONOCYTES 2.4 thou/uL (0.0-1.2); ABSOLUTE NEUTROPHILS 14.5 thou/uL (1.6-8.1); EOSINOPHILS 1.2 %; HEMATOCRIT 27.1 % (42.0-52.0); HEMOGLOBIN 9.1 gm/dL (14.0-18.0); LYMPHOCYTES 9.1 %; MCH 32.5 pg (26.0-34.0); MCHC 33.7 g/dL (28.0-37.0); MCV 96.3 fL (80.0-100.0); MONOCYTES 12.8 %; MPV 9.6 fl. (7.2-11.1); NUCLEATED RBCS 0 /100WBC; PLATELET COUNT* 84 thou/uL (150-400); POLYS 76.9 %; RBC 2.81 mil/uL (4.50-6.00); RDW-CV 16.2 % (10.5-14.5); WBC 18.9 thou/uL (4.0-11.0)
[2020-07-24 04:57] LABS: ALBUMIN 3.3 g/dL (3.4-5.0); CALCIUM 8.7 mg/dL (8.5-10.1); CREATININE 1.2 mg/dL (0.6-1.3); MAGNESIUM 1.7 mg/dL (1.8-2.4); POTASSIUM 4.2 mmol/L (3.5-5.1); TOTAL BILIRUBIN 3.6 mg/dL (<0.1-1.0); TOTAL PROTEIN 5.8 g/dL (6.4-8.2)
[2020-07-24 07:30] VITALS: BP 114/53
[2020-07-24 11:30] VITALS: BP 107/63
[2020-07-24 16:00] VITALS: BP 116/57
[2020-07-24 18:37] LABS: CALCIUM 8.6 mg/dL (8.5-10.1); CREATININE 1.1 mg/dL (0.6-1.3); MAGNESIUM 2.4 mg/dL (1.8-2.4)
[2020-07-24 20:00] VITALS: BP 98/45
[2020-07-25 00:38] VITALS: BP 107/45
[2020-07-25 04:00] VITALS: BP 108/64
[2020-07-25 08:00] VITALS: BP 100/59
[2020-07-25 13:25] VITALS: BP 108/65
[2020-07-25 16:00] VITALS: BP 105/44
[2020-07-25 20:00] VITALS: BP 109/77
[2020-07-26] VITALS: BP 108/56
[2020-07-26 05:10] LABS: ABSOLUTE EOSINOPHILS 0.2 thou/uL (0.0-0.7); ABSOLUTE MONOCYTES 2.5 thou/uL (0.0-1.2); ABSOLUTE NEUTROPHILS 10.4 thou/uL (1.6-8.1); BASOPHILS 0.2 %; EOSINOPHILS 1.6 %; LYMPHOCYTES 13.4 %; MCHC 34.3 g/dL (28.0-37.0); MCV 96.1 fL (80.0-100.0); MONOCYTES 16.4 %; MPV 9.5 fl. (7.2-11.1); NUCLEATED RBCS 0 /100WBC; PLATELET COUNT* 104 thou/uL (150-400); POLYS 68.4 %; RBC 3.02 mil/uL (4.50-6.00); RDW-CV 16.1 % (10.5-14.5); WBC 15.2 thou/uL (4.0-11.0)
[2020-07-26 05:34] LABS: ALBUMIN 4.1 g/dL (3.4-5.0); CALCIUM 9.9 mg/dL (8.5-10.1); CREATININE 1.2 mg/dL (0.6-1.3); MAGNESIUM 1.7 mg/dL (1.8-2.4); POTASSIUM 4.4 mmol/L (3.5-5.1); TOTAL BILIRUBIN 6.7 mg/dL (<0.1-1.0); TOTAL PROTEIN 6.8 g/dL (6.4-8.2)
[2020-07-26 08:00] VITALS: BP 98/56
[2020-07-26 17:11] LABS: CALCIUM 9.8 mg/dL (8.5-10.1); CREATININE 1.5 mg/dL (0.6-1.3); POTASSIUM 3.9 mmol/L (3.5-5.1)
[2020-07-26 20:35] VITALS: BP 106/64
[2020-07-27 05:06] LABS: ABSOLUTE BASOPHILS 0.1 thou/uL (0.0-0.2); ABSOLUTE EOSINOPHILS 0.3 thou/uL (0.0-0.7); ABSOLUTE LYMPHOCYTES 1.4 thou/uL (0.8-5.3); ABSOLUTE MONOCYTES 2.7 thou/uL (0.0-1.2); ABSOLUTE NEUTROPHILS 11.7 thou/uL (1.6-8.1); BASOPHILS 0.5 %; EOSINOPHILS 1.6 %; HEMATOCRIT 28.4 % (42.0-52.0); HEMOGLOBIN 9.8 gm/dL (14.0-18.0); LYMPHOCYTES 8.9 %; MCH 33.2 pg (26.0-34.0); MCHC 34.5 g/dL (28.0-37.0); MCV 96.3 fL (80.0-100.0); MONOCYTES 16.7 %; MPV 9.7 fl. (7.2-11.1); NUCLEATED RBCS 0 /100WBC; PLATELET COUNT* 114 thou/uL (150-400); POLYS 72.3 %; RBC 2.95 mil/uL (4.50-6.00); WBC 16.2 thou/uL (4.0-11.0)
[2020-07-27 05:17] LABS: ALBUMIN 3.9 g/dL (3.4-5.0); CALCIUM 9.5 mg/dL (8.5-10.1); CREATININE 1.6 mg/dL (0.6-1.3); MAGNESIUM 1.9 mg/dL (1.8-2.4); POTASSIUM 3.8 mmol/L (3.5-5.1); TOTAL BILIRUBIN 6.7 mg/dL (<0.1-1.0); TOTAL PROTEIN 6.5 g/dL (6.4-8.2)
[2020-07-27 08:20] VITALS: BP 94/59
[2020-07-27 15:31] LABS: CALCIUM 9.6 mg/dL (8.5-10.1); CREATININE 1.4 mg/dL (0.6-1.3); MAGNESIUM 2.1 mg/dL (1.8-2.4); POTASSIUM 3.6 mmol/L (3.5-5.1)
[2020-07-27 16:44] VITALS: BP 132/76
[2020-07-27 20:00] VITALS: BP 130/51
[2020-07-28 06:58] LABS: ABSOLUTE EOSINOPHILS 0.5 thou/uL (0.0-0.7); ABSOLUTE LYMPHOCYTES 3.4 thou/uL (0.8-5.3); ABSOLUTE MONOCYTES 1.6 thou/uL (0.0-1.2); ABSOLUTE NEUTROPHILS 6.6 thou/uL (1.6-8.1); BASOPHILS 0.4 %; EOSINOPHILS 3.9 %; HEMATOCRIT 27.4 % (42.0-52.0); HEMOGLOBIN 9.5 gm/dL (14.0-18.0); LYMPHOCYTES 28.2 %; MCH 33.6 pg (26.0-34.0); MCHC 34.7 g/dL (28.0-37.0); MCV 96.6 fL (80.0-100.0); MONOCYTES 13.2 %; MPV 9.4 fl. (7.2-11.1); NUCLEATED RBCS 0 /100WBC; PLATELET COUNT* 100 thou/uL (150-400); POLYS 54.3 %; RBC 2.84 mil/uL (4.50-6.00); RDW-CV 17.1 % (10.5-14.5); WBC 12.2 thou/uL (4.0-11.0)
[2020-07-28 07:00] LABS: CALCIUM 9.2 mg/dL (8.5-10.1); CREATININE 1.4 mg/dL (0.6-1.3); POTASSIUM 3.6 mmol/L (3.5-5.1)
[2020-07-28 07:20] VITALS: BP 107/44
[2020-07-28] MEDS ORDERED: MIDODRINE HCL 55 M1 PO (07:47)
[2020-07-28] MEDS ORDERED: LASIX 40 MG TAB40 MG PO (07:50)
[2020-07-28] MEDS ORDERED: ALDACTONE100 MG PO (07:50)
[2020-07-28 11:00] VITALS: BP 107/44
[2020-07-28 16:44] VITALS: BP 107/44
== END 2020-07-28 16:47 | disposition home or self-care (01) | DRG 871 ==
LOC: M.ERS 19:11 → M.TBA-ER 21:22 → M.ICU 22:07 → M.2W 07-18 00:54 → M.3W 07-26 20:57 → M.ORTHSURG 07-27 19:04
PROVIDERS: Emergency Medicine; Internal Medicine; Internal Medicine Critical Care Medicine; Internal Medicine Gastroenterology; ADMIT Internal Medicine; ATTEND Internal Medicine
PROC: 02HV33Z Insertion of Infusion Device into Superior Vena Cava, Percutaneous Approach (ICD-10-PCS; principal; 2020-07-11)
PROC: 0W993ZZ Drainage of Right Pleural Cavity, Percutaneous Approach (ICD-10-PCS; 2020-07-13)
PROC: 5A09357 Assistance with Respiratory Ventilation, Less than 24 Consecutive Hours, Continuous Positive Airway Pressure (ICD-10-PCS; 2020-07-17)
PROC: 30233K1 Transfusion of Nonautologous Frozen Plasma into Peripheral Vein, Percutaneous Approach (ICD-10-PCS; 2020-07-17)
PROC: 5A09357 Assistance with Respiratory Ventilation, Less than 24 Consecutive Hours, Continuous Positive Airway Pressure (ICD-10-PCS; 2020-07-19)
PROC: 0DJ08ZZ Inspection of Upper Intestinal Tract, Via Natural or Artificial Opening Endoscopic (ICD-10-PCS; 2020-07-20)
PROC: 5A09357 Assistance with Respiratory Ventilation, Less than 24 Consecutive Hours, Continuous Positive Airway Pressure (ICD-10-PCS; 2020-07-20)
PROC: 5A09357 Assistance with Respiratory Ventilation, Less than 24 Consecutive Hours, Continuous Positive Airway Pressure (ICD-10-PCS; 2020-07-21)
PROC: 5A09457 Assistance with Respiratory Ventilation, 24-96 Consecutive Hours, Continuous Positive Airway Pressure (ICD-10-PCS; 2020-07-22)
DX: A41.89 Other specified sepsis (principal); J18.9 Pneumonia, unspecified organism; R65.21 Severe sepsis with septic shock; N17.0 Acute kidney failure with tubular necrosis; J96.20 Acute and chronic respiratory failure, unspecified whether with hypoxia or hypercapnia; A04.72 Enterocolitis due to Clostridium difficile, not specified as recurrent; I85.00 Esophageal varices without bleeding; K76.6 Portal hypertension; J94.8 Other specified pleural conditions; J91.8 Pleural effusion in other conditions classified elsewhere; F17.220 Nicotine dependence, chewing tobacco, uncomplicated; E11.9 Type 2 diabetes mellitus without complications; I10 Essential (primary) hypertension; N40.0 Benign prostatic hyperplasia without lower urinary tract symptoms; K04.7 Periapical abscess without sinus; I95.9 Hypotension, unspecified; D69.6 Thrombocytopenia, unspecified; E83.42 Hypomagnesemia; D64.9 Anemia, unspecified; I35.0 Nonrheumatic aortic (valve) stenosis; E88.09 Other disorders of plasma-protein metabolism, not elsewhere classified; K31.89 Other diseases of stomach and duodenum; K70.30 Alcoholic cirrhosis of liver without ascites; Z20.828 Contact with and (suspected) exposure to other viral communicable diseases; Z79.899 Other long term (current) drug therapy

== ENCOUNTER 2020-11-24 05:31 | Inpatient (IN) | payer OTHER ==
[~2020-11-24] VITALS: Ht 175.3 cm; Wt 88.5 kg
[~2020-11-24 05:31] MED LIST changes: +ALDACTONE100 MG PO; +ASA81BEC PO; +FLOMAX0.4 MG PO; +FOLIC ACID1 MG PO; +IRON325 M1 PO; +LASIX 40 MG TAB40 MG PO; +METFORMIN HCL500 M3 PO; +MIDODRINE HCL 55 M1 PO
[2020-11-24 05:36] VITALS: BP 108/67
[2020-11-24 06:11] LABS: ABSOLUTE BASOPHILS 0.1 thou/uL (0.0-0.2); ABSOLUTE EOSINOPHILS 0.1 thou/uL (0.0-0.7); ABSOLUTE LYMPHOCYTES 0.9 thou/uL (0.8-5.3); ABSOLUTE MONOCYTES 0.8 thou/uL (0.0-1.2); BASOPHILS 0.7 %; EOSINOPHILS 0.6 %; HEMATOCRIT 27.5 % (42.0-52.0); HEMOGLOBIN 9.3 gm/dL (14.0-18.0); LYMPHOCYTES 10.6 %; MCV 94.1 fL (80.0-100.0); MONOCYTES 8.8 %; NUCLEATED RBCS 0 /100WBC; PLATELET COUNT* 95 thou/uL (150-400); POLYS 79.3 %; RBC 2.92 mil/uL (4.50-6.00); RDW-CV 16.3 % (10.5-14.5); WBC 8.8 thou/uL (4.0-11.0)
[2020-11-24 06:18] LABS: CALCIUM 9.5 mg/dL (8.5-10.1); CREATININE 1.1 mg/dL (0.6-1.3); POTASSIUM 5.2 mmol/L (3.5-5.1)
[2020-11-24 06:23] LABS: ALBUMIN 2.5 g/dL (3.4-5.0); MAGNESIUM 1.6 mg/dL (1.8-2.4); TOTAL BILIRUBIN 2.2 mg/dL (<0.1-1.0); TOTAL PROTEIN 5.7 g/dL (6.4-8.2)
[2020-11-24] MEDS ORDERED: SUPER THERAVIT1 EACH PO (06:24)
[2020-11-24] MEDS ORDERED: KEFLEX500 M1 PO (06:25)
[2020-11-24] MEDS ORDERED: VITAMIN D310 MC2 PO (06:26)
[2020-11-24 06:31] LABS: INR 1.3
[2020-11-24 10:00] VITALS: BP 105/66
[2020-11-24 12:45] VITALS: BP 112/84
--- NOTE | 2020-11-24 12:45 | NUR ---
REPORT CALLED TO SUSAN ON . PT TAKEN TO ROOM 224 VIA CART.
[2020-11-24 14:55] LABS: ABSOLUTE LYMPHOCYTES 1.1 thou/uL (0.8-5.3); ABSOLUTE MONOCYTES 1.1 thou/uL (0.0-1.2); ABSOLUTE NEUTROPHILS 8.5 thou/uL (1.6-8.1); BASOPHILS 0.4 %; EOSINOPHILS 0.4 %; HEMATOCRIT 24.2 % (42.0-52.0); HEMOGLOBIN 8.1 gm/dL (14.0-18.0); LYMPHOCYTES 9.9 %; MCH 32.1 pg (26.0-34.0); MCHC 33.5 g/dL (28.0-37.0); MCV 95.6 fL (80.0-100.0); MONOCYTES 10.5 %; MPV 9.3 fl. (7.2-11.1); NUCLEATED RBCS 0 /100WBC; PLATELET COUNT* 100 thou/uL (150-400); POLYS 78.8 %; RBC 2.53 mil/uL (4.50-6.00); RDW-CV 16.5 % (10.5-14.5); WBC 10.8 thou/uL (4.0-11.0)
[2020-11-24 14:56] LABS: CREATININE 1.2 mg/dL (0.6-1.3)
[2020-11-24 14:58] LABS: POTASSIUM 6.1 mmol/L (3.5-5.1)
[2020-11-24 19:58] LABS: ABSOLUTE LYMPHOCYTES 0.9 thou/uL (0.8-5.3); ABSOLUTE MONOCYTES 1.1 thou/uL (0.0-1.2); ABSOLUTE NEUTROPHILS 10.6 thou/uL (1.6-8.1); BASOPHILS 0.3 %; EOSINOPHILS 0.2 %; HEMATOCRIT 25.4 % (42.0-52.0); HEMOGLOBIN 8.4 gm/dL (14.0-18.0); LYMPHOCYTES 7.3 %; MCH 31.7 pg (26.0-34.0); MCV 96.2 fL (80.0-100.0); MONOCYTES 8.9 %; MPV 9.2 fl. (7.2-11.1); NUCLEATED RBCS 0 /100WBC; PLATELET COUNT* 108 thou/uL (150-400); POLYS 83.3 %; RBC 2.64 mil/uL (4.50-6.00); RDW-CV 17.1 % (10.5-14.5); WBC 12.7 thou/uL (4.0-11.0)
[2020-11-24 20:00] LABS: CALCIUM 9.3 mg/dL (8.5-10.1); CREATININE 1.2 mg/dL (0.6-1.3)
[2020-11-24 20:02] LABS: POTASSIUM 6.4 mmol/L (3.5-5.1)
[2020-11-24 20:09] VITALS: BP 108/60
[2020-11-25] VITALS (7 sets, daily range): BP systolic 90–128; BP diastolic 45–66
--- NOTE | 2020-11-25 08:08 | NUR ---
PT IS ABLE TO COMMUNICATE HIS NEEDS TO STAFF EFFECTIVELY. 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 HE IS CURRENTLY NPO FOR GI. POTASSIUM HAS BEEN HIGH; MADE AWARE. STILL SOME MAROON STOOLS WITH CLOTS.
--- NOTE | 2020-11-25 09:37 | EKG ---
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: [facility] : 1955 Requested By: Gela Bustos Order Number: [id number] MD: Brett Lopez Measurements Intervals [place] Rate: 104 P: 78 DC: 152 QRS: 81 QRSD: 93 T: -22 QT: 349 QTc: 459 Interpretive Statements Sinus tachycardia nonspecific t wave changes Borderline right axis deviation Low voltage, extremity leads Baseline wander in lead(s) II,V1 Compared to ECG 07/11/2020 19:30:48 no change Electronically Signed On 11-25-2020 9:36:57 LUMBER BUYER by Brett Lopez [email or web address] <ELECTRONICALLY SIGNED> By: Brett Lopez MD, FACC 11/25/20 0936 4 4 Brett Lopez MD, FAC /EPI
[2020-11-25 10:21] LABS: URINE BILIRUBIN NEGATIVE (Negative); URINE BLOOD 3+ (Negative); URINE CLARITY CLEAR; URINE COLOR YELLOW; URINE GLUCOSE-RANDOM NEGATIVE (Negative); URINE KETONES NEGATIVE (Negative); URINE LEUKOCYTES-REFLEX NEGATIVE (Negative); URINE NITRITE-REFLEX NEGATIVE (Negative); URINE PROTEIN NEGATIVE (Negative); URINE SPECIFIC GRAVITY 1.025 (1.005-1.030); URINE UROBILINOGEN 0.2 E.U./dl (0.2-1.0)
[2020-11-25 10:28] LABS: SQUAMOUS 0-3 Few /LPF (0-3)
[2020-11-25 10:29] LABS: CRYSTALS None Seen /LPF (None Seen); HYALINE CASTS 0-3 Few /LPF (None Seen); MUCUS None Seen strn/LPF (None Seen); URINE RBC 0-2 Rare /HPF (0-2); URINE WBC-REFLEX 0-5 Rare /HPF (0-5)
--- NOTE | 2020-11-25 10:30 | NUR ---
CM SPOKE TO THE PT TO DISCUSS CM ASSESSMENT. PT A&O,INDEPENDENT WITH ADL'S, AND DRIVES. PT CURRENTLY RESIDES AT A [facility] IN [facility]. 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 PT HAS 0 HX OF HH OR SNF. CM WILL REMAIN AVAILABLE TO ASSIST AND FOLLOW NEEDED.
[2020-11-25 11:21] LABS: ABSOLUTE BASOPHILS 0.1 thou/uL (0.0-0.2); ABSOLUTE EOSINOPHILS 0.4 thou/uL (0.0-0.7); ABSOLUTE LYMPHOCYTES 2.2 thou/uL (0.8-5.3); ABSOLUTE MONOCYTES 1.3 thou/uL (0.0-1.2); ABSOLUTE NEUTROPHILS 7.7 thou/uL (1.6-8.1); BASOPHILS 0.9 %; EOSINOPHILS 3.8 %; HEMATOCRIT 21.8 % (42.0-52.0); HEMOGLOBIN 7.2 gm/dL (14.0-18.0); MCH 31.8 pg (26.0-34.0); MCHC 33.1 g/dL (28.0-37.0); MCV 95.8 fL (80.0-100.0); MONOCYTES 10.9 %; MPV 8.4 fl. (7.2-11.1); NUCLEATED RBCS 0 /100WBC; PLATELET COUNT* 113 thou/uL (150-400); POLYS 65.4 %; RBC 2.27 mil/uL (4.50-6.00); RDW-CV 17.2 % (10.5-14.5); WBC 11.7 thou/uL (4.0-11.0)
[2020-11-25 11:31] LABS: CALCIUM 8.6 mg/dL (8.5-10.1); CREATININE 1.4 mg/dL (0.6-1.3)
[2020-11-25 11:32] LABS: POTASSIUM 5.2 mmol/L (3.5-5.1)
[2020-11-25 11:35] LABS: ALBUMIN 2.4 g/dL (3.4-5.0); MAGNESIUM 2.1 mg/dL (1.8-2.4); TOTAL BILIRUBIN 2.3 mg/dL (<0.1-1.0); TOTAL PROTEIN 5.2 g/dL (6.4-8.2)
--- NOTE | 2020-11-25 11:59 | NUR ---
ASSUMED CARE OF PATIENT THIS AM AT 0730. PATIENT IS ALERT AND ORIENTED X 4. HE C/O MODERATE GENERALIZED PAIN THIS AM. TELE SHOWS SR. PATIENT HAS BEEN UP TO THE [facility] FOR LIQUID STOOLS. PATIENT KEPT NPO AT THIS TIME. K+ ELEVATED AT 6.4. DR GUAN NOTIFIED. LABS ARE TO BE REDRAWN. WILL CONTINUE TO MONITOR.
[2020-11-26 04:00] VITALS: BP 105/52
--- NOTE | 2020-11-26 05:35 | CON ---
[address] [address] CONSULTATION Name: KIMBERLY MERCADO Room: [address] IN M.R.#: [id number] Admission: 11/24/20 Attend Phys: Kofi Flores Discharge: Date of : 57 Report #: [id number] THIS REPORT FOR: cc: Bentley Song MD, Joseph G. MD ~ Salbador Venegas DO DATE OF SERVICE: 11/24/2020 REFERRING PHYSICIAN: Dr. Gela Bustos. REASON FOR CONSULTATION: GI bleed. IMPRESSION: 1. Black stools with associated hematochezia -- evaluate for upper gastrointestinal tract source for the same. 2. Alcoholic cirrhosis with history of esophageal varices with need to rule out variceal bleed. 3. 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 RECOMMENDATIONS: 1. The patient is nauseous at this time. He has had some vomiting. He has also had black stools, tarry stools and some rectal bleeding with lightheadedness and dizziness. For this reason, we need to rule out an upper GI bleed with fast transit causing his issues. For this reason, we will proceed with upper endoscopy today. 2. I discussed with Dr. Bustos through the Emergency Room to place the patient on octreotide until we knew more. The patient has already undergone a CT angiogram of the abdomen and pelvis, which did not reveal any obvious active bleeding that would require interventional radiology's help. We will proceed with an upper endoscopy today and make further recommendations thereafter. HISTORY OF PRESENT ILLNESS: The patient is a 65-year-old white male known to me from previous hospitalization earlier this year when he was being evaluated for why he had a right pleural effusion. It was felt that he has probably had hepatic hydrothorax. The patient has a longstanding history of alcohol use and abuse and his fluid was compatible with the same. He was sent home on diuretics and did not follow up with us. During his hospital stay, he did undergo an upper endoscopy, which revealed grade 1 esophageal varices. He came to the Emergency Room this morning because last night, he started having problem with dark stools initially which then became purple, then eventually red. He has had some ____ of blood from his rectum. He denies any problems referable to his lower GI tract. He has undergone a colonoscopy in the past, but it has been a number of years. He states he is not taking nonsteroidals, but he does take some kind of medication to help relieve joint aches and pains. [place] [address] CONSULTATION Name: KIMBERLY MERCADO Room: [address] [facility].#: [id number] Admission: 11/24/20 Attend Phys: Kofi Flores Discharge: Date of : 57 Report #: [id number] the name of the same. He is not the best of historians. He denies complaints of any chest discomfort, chest pain, shortness of breath. CURRENT MEDICATIONS: Include midodrine, spironolactone 100 mg daily and Lasix 40 mg twice daily. Those were back in July and it is unclear whether he is taking these. He is also supposed to be taking a multivitamin, tamsulosin, metformin, and iron. PAST MEDICAL AND SURGICAL HISTORY: Significant for alcoholic cirrhosis with a right pleural effusion and some ascites. He has had esophageal varices. He had BPH, diabetes. He has no prior history of drug use. He has had previous lung biopsy in 2019. He has also had recurrent pleural effusions and has had paracentesis for the same. IMAGING DATA: His CT angiogram of the abdomen and pelvis performed today revealed large right pleural effusion. The arteries are all patent without evidence for extravasation. The liver is cirrhotic with portal hypertensive changes and recanalization of the umbilical vein with collateral vessels. Gallbladder is contracted with gallstones. Spleen is normal in size. There is some stranding and edema around the duodenum as well as the pancreas potentially causing pancreatitis. There is some mildly dilated proximal small bowel loops as well without definite transition zone. There is also some possible thickening of the colon of uncertain significance. There is also a left groin mass measuring 5 x 3.7 cm in inguinal canal compatible with a cyst and similar finding on the right. There is mild bladder wall thickening. LABORATORY TESTS: Revealed a white count of 8.8, hemoglobin 9.3, platelet count 95,000. By comparison to November, his hemoglobin was 9.5. His sodium is 137, potassium 5.2, chloride 105, bicarbonate 24, his BUN is 39, creatinine 1.1. His BUN to creatinine ratio was almost 40. Total bilirubin 2.2, alkaline phosphatase 72, AST is 39, ALT 24, albumin is 2.5. His GFR is 67. By comparison, his BUN was 28, creatinine 1.4 in July. The patient did have hepatitis testing during his last hospital stay, which were all negative for hepatitis A, B and C. He also was tested for autoimmune and primary biliary cirrhosis or cholangitis. This was negative. He also underwent alpha-1 antitrypsin levels, ceruloplasmin and all of which were unrevealing. DISCUSSION: At the present time, the patient has GI bleed. Whether it is coming from his upper or lower, it is unclear. We will proceed with [address] [place] [address] CONSULTATION Name: KIMBERLY MERCADO Room: [address] IN .R.#: [id number] Admission: 11/24/20 Attend Phys: Kofi Flores Discharge: Date of : 57 Report #: [id number] endoscopy today and make further recommendations thereafter. I have discussed these plans with him and ____ and he is agreeable to the same. <ELECTRONICALLY SIGNED> By: Salbador Venegas DO 11/26/20 0535 1413 1517Salbador Venegas DO /nt
[2020-11-26 05:37] LABS: ALBUMIN 2.6 g/dL (3.4-5.0); CALCIUM 8.4 mg/dL (8.5-10.1); CREATININE 1.1 mg/dL (0.6-1.3); MAGNESIUM 2.1 mg/dL (1.8-2.4); POTASSIUM 4.6 mmol/L (3.5-5.1); TOTAL BILIRUBIN 2.5 mg/dL (<0.1-1.0)
[2020-11-26 06:28] LABS: MCH 32.5 pg (26.0-34.0); MCHC 34.2 g/dL (28.0-37.0); MCV 95.1 fL (80.0-100.0); MPV 8.1 fl. (7.2-11.1); RBC 1.88 mil/uL (4.50-6.00); RDW-CV 16.9 % (10.5-14.5); WBC 7.7 thou/uL (4.0-11.0)
[2020-11-26 06:34] LABS: HEMATOCRIT 17.9 % (42.0-52.0); HEMOGLOBIN 6.1 gm/dL (14.0-18.0)
--- NOTE | 2020-11-26 08:09 | NUR ---
PT IS ABLE TO COMMUNICATE HIS NEEDS TO STAFF EFFECTIVELY. CURRENT PAIN MEDICATION REGIMEN HAS BEEN ADEQUATE FOR CONTROLLING HIS PAIN UP TO THIS TIME. HE HAS BEEN NPO FOR A LIKELY CT CHEST AND ABD/PELVIS WITH CONTRAST LATER TODAY. HGB LOWER THIS AM; GAVE ORDER TO TXFUSE I UNIT PRBCs.
[2020-11-26 08:28] VITALS: BP 131/58
[2020-11-26 08:57] VITALS: BP 105/59; BP 107/65; BP 110/68; BP 111/62
[2020-11-26 11:22] VITALS: BP 131/58
--- NOTE | 2020-11-26 15:56 | NUR ---
CT RESULTS CALLED TO DR. GUAN/ISABELLA.
--- NOTE | 2020-11-26 16:04 | NUR ---
SPOKE WITH / YVETTE ON PHON AND ORDERS GIVEN.
[2020-11-26 16:17] LABS: HEMATOCRIT 21.3 % (42.0-52.0); HEMOGLOBIN 7.2 gm/dL (14.0-18.0); MCH 32.1 pg (26.0-34.0); MCV 94.4 fL (80.0-100.0); MPV 8.3 fl. (7.2-11.1); RBC 2.26 mil/uL (4.50-6.00); RDW-CV 17.4 % (10.5-14.5); WBC 6.9 thou/uL (4.0-11.0)
[2020-11-26 17:10] VITALS: BP 120/66
[2020-11-26 19:35] VITALS: BP 130/66
[2020-11-26 19:43] LABS: BF RBC 1655 /mm3; TOTAL CELL COUNT 176 /mm3
[2020-11-26 20:03] LABS: CLARITY SLIGHTLY HAZY; TOTAL VOLUME 18.5 ml
[2020-11-26 20:19] LABS: BF LYMPHOCYTES 56 %; BF MONOCYTES 9 %; BF POLYS 35 %; BF TISSUE 9 /100 WBC
[2020-11-26 20:20] LABS: SOURCE THORACENTESIS
[2020-11-27] VITALS (9 sets, daily range): BP systolic 89–126; BP diastolic 49–68
--- NOTE | 2020-11-27 03:16 | NUR ---
ASSUMED CARE OF PT AT 1900. PT IS ALERT AND ORIENTED. VSS. PERRMERLIN. PT WAS PLACED ON 2 LITERS OF O2 WHILE SLEEPING. PTS SAT GOES DOWN WHILE SLEEPING. PT IS IN SINUS RYTHM ON THE TELEMETRY. PT IS RESTING COMFORTABLY IN BED. RESPIRATIONS ARE EVEN AND NONLABORED. WILL CONTINUE TO MONITOR PT.
[2020-11-27 04:37] LABS: HEMATOCRIT 20.4 % (42.0-52.0); MCH 31.5 pg (26.0-34.0); MCHC 33.4 g/dL (28.0-37.0); MCV 94.4 fL (80.0-100.0); MPV 8.8 fl. (7.2-11.1); RBC 2.16 mil/uL (4.50-6.00); RDW-CV 17.1 % (10.5-14.5); WBC 6.6 thou/uL (4.0-11.0)
[2020-11-27 05:00] LABS: HEMOGLOBIN 6.8 gm/dL (14.0-18.0)
[2020-11-27 05:04] LABS: ALBUMIN 3.1 g/dL (3.4-5.0); CALCIUM 8.4 mg/dL (8.5-10.1); CREATININE 1.1 mg/dL (0.6-1.3); MAGNESIUM 1.9 mg/dL (1.8-2.4); POTASSIUM 4.1 mmol/L (3.5-5.1); TOTAL BILIRUBIN 2.7 mg/dL (<0.1-1.0); TOTAL PROTEIN 5.5 g/dL (6.4-8.2)
--- NOTE | 2020-11-27 09:20 | EKG ---
[place] [address] ELECTROCARDIOGRAM REPORT Name: KIMBERLY MERCADO Room: [address] ADM IN .R.#: [id number] Admission: 11/24/20 Attend Phys: Mark Garces Discharge: Date of : 57 Date of Service: 11/24/20 1520 Report #: [id number] THIS REPORT FOR: //name// [facility] Test Date: 2020-11-24 Test Time: 15:20:52 Pat Name: KIMBERLY MERCADO Department: Room: [address] Gender: M Check Inspector: ABIEL : 1955 Requested By: Wanda House Order Number: [id number] Johana MD: Brett Lopez Measurements Intervals Amelia Rate: 91 P: 49 MN: 161 QRS: 65 QRSD: 96 T: 0 QT: 365 QTc: 450 Interpretive Statements Sinus rhythm Low voltage, extremity leads nonspecific t wave changes Compared to ECG 11/24/2020 06:15:34 Sinus tachycardia no longer present Electronically Signed On 11-27-2020 9:20:25 [employer] QUAL[employer] SPECIALIST by Brett Lopez [email or web address] <ELECTRONICALLY SIGNED> By: Brett Lopez MD, FAC 11/27/20 0920 1520 1520 Brett Lopez MD, [facility] /EPI
--- NOTE | 2020-11-27 13:05 | NUR ---
CM INFORMED DURING PRIME ROUNDING OF THE PLAN OF CARE FOR THE PT. GI AND PULMONARY CONSULTS PENDING. NO CM D/C PLANNING NEEDS ANTICIPATED. CM WILL REMAIN AVAILABLE TO ASSIST AND FOLLOW NEEDED.
[2020-11-28 05:00] VITALS: BP 112/65
--- NOTE | 2020-11-28 06:40 | NUR ---
ASSUMED PT CARE AT 1910. NURSING ASSESSMENT COMPLETED AT START OF SHIFT. PT VOICED NO CONCERNS THIS SHIFT. MANAGER MARKET RESEARCH IN PLACE, TRACING SR. HOURLY ROUNDING COMPLETED. CALL LIGHT WITHIN REACH.
[2020-11-28 08:00] VITALS: BP 112/67
[2020-11-28 08:40] LABS: ABSOLUTE BASOPHILS 0.1 thou/uL (0.0-0.2); ABSOLUTE EOSINOPHILS 0.2 thou/uL (0.0-0.7); ABSOLUTE LYMPHOCYTES 1.5 thou/uL (0.8-5.3); ABSOLUTE NEUTROPHILS 3.7 thou/uL (1.6-8.1); BASOPHILS 0.8 %; EOSINOPHILS 3.8 %; HEMOGLOBIN 8.7 gm/dL (14.0-18.0); LYMPHOCYTES 22.6 %; MCHC 33.6 g/dL (28.0-37.0); MCV 92.3 fL (80.0-100.0); MONOCYTES 15.2 %; MPV 8.3 fl. (7.2-11.1); NUCLEATED RBCS 0 /100WBC; PLATELET COUNT* 90 thou/uL (150-400); POLYS 57.6 %; RBC 2.82 mil/uL (4.50-6.00); RDW-CV 18.3 % (10.5-14.5); WBC 6.5 thou/uL (4.0-11.0)
[2020-11-28 08:55] LABS: CALCIUM 8.7 mg/dL (8.5-10.1); CREATININE 0.8 mg/dL (0.6-1.3); POTASSIUM 3.6 mmol/L (3.5-5.1); TOTAL BILIRUBIN 3.4 mg/dL (<0.1-1.0); TOTAL PROTEIN 5.6 g/dL (6.4-8.2)
[2020-11-28 11:40] VITALS: BP 98/65
--- NOTE | 2020-11-28 13:37 | NUR ---
CM INFORMED DURING PRIME ROUNDING OF THE PLAN OF CARE FOR THE PT. PLAN FOR PT TO REMAIN INPT ONE MORE DAY. GI AND PULM CONSULTED AND AWITING RECOMMENDATIONS FOR D/C PLANNING. AT THIS TIME NO D/C PLANNING NEEDS ANTICIPATED. CM WILL REMAIN AVAILABLE TO ASSIST AND FOLLOW NEEDED.
[2020-11-28 14:08] LABS: BODY FLUID PROTEIN 1.1 g/dL (())
[2020-11-28 16:45] VITALS: BP 103/64
[2020-11-28 21:00] VITALS: BP 108/48
--- NOTE | 2020-11-28 22:00 | NUR ---
PT IS RESTING.VSS ON RA. PT HAS HAD A VERY GOOD AMOUNT OF URINE OUTPUT T/O SHIFT.VSS.SR ON MONITOR.PT HAS HAD BETTER MOOD TODAY VS PREVIOUS DAY. PT STRENGTH INCREASED. PT ADLIB TO BSC. NOTHING FURTHER AT THIS TIME.CLWR.WCTM
[2020-11-29] VITALS: BP 100/45
[2020-11-29 04:00] VITALS: BP 95/65
[2020-11-29 04:43] LABS: ABSOLUTE EOSINOPHILS 0.3 thou/uL (0.0-0.7); ABSOLUTE LYMPHOCYTES 1.6 thou/uL (0.8-5.3); ABSOLUTE MONOCYTES 1.2 thou/uL (0.0-1.2); ABSOLUTE NEUTROPHILS 4.1 thou/uL (1.6-8.1); BASOPHILS 0.6 %; EOSINOPHILS 3.7 %; HEMATOCRIT 25.9 % (42.0-52.0); HEMOGLOBIN 8.8 gm/dL (14.0-18.0); LYMPHOCYTES 22.4 %; MCH 31.1 pg (26.0-34.0); MCV 91.6 fL (80.0-100.0); MONOCYTES 16.1 %; MPV 8.6 fl. (7.2-11.1); NUCLEATED RBCS 0 /100WBC; PLATELET COUNT* 90 thou/uL (150-400); POLYS 57.2 %; RBC 2.82 mil/uL (4.50-6.00); RDW-CV 17.7 % (10.5-14.5); WBC 7.2 thou/uL (4.0-11.0)
[2020-11-29 05:01] LABS: CALCIUM 9.1 mg/dL (8.5-10.1); CREATININE 0.8 mg/dL (0.6-1.3); POTASSIUM 3.4 mmol/L (3.5-5.1); TOTAL BILIRUBIN 2.5 mg/dL (<0.1-1.0); TOTAL PROTEIN 5.4 g/dL (6.4-8.2)
--- NOTE | 2020-11-29 05:04 | NUR ---
No acute event this shift. Pt denies pain. No noted bleeding overnight. BP still soft. Pt hgb today 8.8. Assessment as charted, meds given per mar. Call light within reach, safety precaution in placed. Will continue POC.
[2020-11-29 07:30] VITALS: BP 105/45
[2020-11-29] MEDS ORDERED: XIFAXAN550 M1 PO (10:19)
[2020-11-29] MEDS ORDERED: NEXIUM40 MG PO (10:19)
--- NOTE | 2020-11-29 11:10 | NUR ---
CM INFORMED DURING PRIME ROUNDING OF THE PLAN OF CARE FOR THE PT. PLAN FOR PT TO POSSIBLY D/C TODAY. NO CM D/C PLANNING NEEDS ANTICIPATED. CM WILL REMAIN AVAILABLE TO ASSIST AND FOLLOW NEEDED.
[2020-11-29 11:19] VITALS: BP 119/73
[2020-11-29 12:30] VITALS: BP 117/73
[2020-11-29 13:05] VITALS: BP 117/73
--- NOTE | 2020-12-01 22:38 | CON ---
[address] [address] CONSULTATION Name: KIMBERLY MERCADO Christine Room: [address] IN M.R.#: [id number] Admission: 11/24/20 Attend Phys: Kofi Flores Discharge: 11/29/20 Date of : 57 Report #: [id number] THIS REPORT FOR: cc: Bentley Song MD, Joseph G. MD ~ Mello Pappas MD DATE OF SERVICE: 11/27/2020 Consult has been requested by Dr. Ledesma. INDICATION FOR CONSULTATION: Hepatic hydrothorax/pleural effusion. HISTORY OF PRESENT ILLNESS: This is a 65-year-old gentleman with past medical history as mentioned below. The patient was previously admitted to our hospital in June. The patient did have acute respiratory failure. The patient at that time, did also have a dental abscess. He did have a large transudative pleural effusion at that time as well in addition to pulmonary infiltrates. Upon further workup, he was diagnosed with hepatorenal syndrome. He was in acute renal failure. The GI service was consulted and he was diagnosed with alcoholic cirrhosis. The patient did have grade 1 varices on the endoscopy performed during the previous admission. The patient's blood pressure did run on the lower side. He also did have marked fluid overload. We did treat him with albumin, initially he was hypotensive and required fluid resuscitation. Later, he was given albumin with Lasix in addition to midodrine. The patient required very large amounts of Lasix in the form of a Lasix drip to reach a euvolemic state. He did have urinary retention when his Glod catheter was removed. The patient is now admitted with an upper GI bleed. He was having melanotic stools. The patient is reported to have had taken large doses of naproxen. Recently, the patient again does have a right sided pleural effusion, which is large in size. Due to shortness of breath, he did have a thoracentesis yesterday. He did have 2200 mL removed. There is a large pleural effusion still persisting, which is either larger than before the thoracentesis or changed due to technique. The patient at this time does not have significant swelling of lower extremities. There is no calf pain. He does have some abdominal distention. He reports significant improvement in shortness of breath since yesterday. He does have a low-grade fever. There is no sputum. He does have some cough. He does not have upper respiratory complaints. REVIEW OF SYSTEMS: For 12 points is negative [place] [address] CONSULTATION Name: KIMBERLY MERCADO Christine Room: [address]#: [id number] Admission: 11/24/20 Attend Phys: Kofi Flores Discharge: 11/29/20 Date of : 57 Report #: [id number] PAST MEDICAL HISTORY: Alcoholic cirrhosis with a recent hepatorenal syndrome and acute renal failure in June as described above. The patient had severe fluid overload requiring large amounts of Lasix with albumin at that time. Urine retention and difficulty keeping a Gold, removed during the last hospitalization. Thrombocytopenia during the last hospitalization in the setting of receiving Zosyn, benign prostatic hypertrophy, type 2 diabetes, alcohol abuse. No alcohol since 06/14, tonsillectomy, hypertension, prostatism. The patient's last available echocardiogram is from June and shows a left ventricular ejection fraction of 55-60%. There is also moderate aortic stenosis and a pulmonary artery systolic was 37. SOCIAL HISTORY: The patient has a history of heavy alcohol intake until 2014. He has not had alcohol since 05/2020. I am not aware of his alcohol intake in between. There is no known history of illegal drug use. No known history of smoking. The patient has been chewing tobacco in the past. ALLERGIES: THE PATIENT DID HAVE THROMBOCYTOPENIA WHILE RECEIVING ZOSYN DURING THE LAST HOSPITALIZATION. ZOSYN WAS CONSIDERED A POSSIBLE ETIOLOGY. There is no other known drug allergy. FAMILY HISTORY: No pertinent family history. CURRENT MEDICATIONS: List in [facility] reviewed. HOME MEDICATIONS: List also in [employer] [facility] reviewed. PHYSICAL EXAMINATION: GENERAL: He is alert, awake and oriented, does not appear to be in any distress. VITAL SIGNS: Has a pulse of 70 and a blood pressure of 91/60, he is saturating 97%. He is on 2 liters nasal cannula. He has a low-grade fever of 37.5. HEENT: Head is normocephalic and atraumatic. NECK: Does not show raised JVP, asymmetry, mass or lymph nodes. CHEST: Symmetrical expansion on inspection and palpation. On auscultation; however, breath sounds were decreased at the right lung base. HEART: Regular. There is no murmur. ABDOMEN: Mildly distended, nontender. EXTREMITIES: Lower extremities show no edema and no calf tenderness. SKIN: Dry and intact. NEUROLOGICAL: Moves all extremities bilaterally equally and spontaneously with no focal deficit identified. LABORATORY DATA: The patient's chest x-ray, which is also discussed above in [address] [address] CONSULTATION Name: KIMBERLY MERCADO Room: [address]#: [id number] Admission: 11/24/20 Attend Phys: Kofi Flores Discharge: 11/29/20 Date of : 57 Report #: [id number] [facility]. I reviewed both the films as well as the report. The patient's CT chest performed yesterday also reviewed. The patient's lab work is in [facility] and this is also reviewed. ASSESSMENT AND PLAN: 1. Large right sided pleural effusion/hepatic hydrothorax. We would consider performing further drainage of this pleural effusion only as a temporizing or palliative measure. Diffusion is likely to continue to reoccur. If drained, long-term favor continuing therapy with diuresis. I considered significantly increasing the dose of midodrine to a allow blood pressure for increasing dose of diuresis; however, I do recall the patient having significant problems with urinary retention during the last hospitalization and this could be worsened by increasing dose of midodrine and therefore, I held off. We will investigate further regarding measures to control his prostatism. Once this is addressed, I would favor increasing the dose of midodrine significantly to around 10 mg t.i.d. Meanwhile, we will consider additional diuresis, possibly with albumin tomorrow. 2. Acute upper gastrointestinal bleed/recent use of large amounts of NSAIDs. Recommending avoiding NSAIDs. The patient has received blood transfusions. GI service is on the case. He is on a proton pump inhibitor. Note that he has had grade 1 varices in the past, but the recent EGD showed a distal esophageal stricture in addition to duodenitis, severe and mild gastropathy. 3. Alcoholic cirrhosis with portal hypertension. We will review with the GI service regarding whether the patient will be an appropriate candidate for referral for TIPS. 4. Low-grade fever. Decided to only watch for now. No definite sign of infection. Note that the patient may have had thrombocytopenia secondary to Zosyn. We will therefore avoid use of penicillin for this patient; however, feel that other beta-lactam antibiotics if indicated can still be considered. 5. Fluid and electrolytes, discontinue normal saline. 6. History of prostatism/urinary retention. See discussion above. Thanks for this consultation. <ELECTRONICALLY SIGNED> By: Mello Pappas MD 12/01/20 2238 1753 [id number] Pappas MD /nt
== END 2020-11-29 16:12 | disposition home or self-care (01) | DRG 377 ==
LOC: M.ERS 05:31 → M.2W 07:01 → M.TBA-ER 07:01 → M.2W 13:03
PROVIDERS: Emergency Medicine; Internal Medicine; Internal Medicine Gastroenterology; ADMIT Internal Medicine; ATTEND Internal Medicine
PROC: 0W3P8ZZ Control Bleeding in Gastrointestinal Tract, Via Natural or Artificial Opening Endoscopic (ICD-10-PCS; principal; 2020-11-25)
PROC: 0D738ZZ Dilation of Lower Esophagus, Via Natural or Artificial Opening Endoscopic (ICD-10-PCS; principal; 2020-11-25)
PROC: 0W993ZZ Drainage of Right Pleural Cavity, Percutaneous Approach (ICD-10-PCS; 2020-11-26)
PROC: 30233N1 Transfusion of Nonautologous Red Blood Cells into Peripheral Vein, Percutaneous Approach (ICD-10-PCS; 2020-11-26)
DX: K26.4 Chronic or unspecified duodenal ulcer with hemorrhage (principal); K76.7 Hepatorenal syndrome; D62 Acute posthemorrhagic anemia; J94.8 Other specified pleural conditions; K76.6 Portal hypertension; J93.9 Pneumothorax, unspecified; J90 Pleural effusion, not elsewhere classified; K31.89 Other diseases of stomach and duodenum; F10.10 Alcohol abuse, uncomplicated; E11.9 Type 2 diabetes mellitus without complications; K92.1 Melena; K70.30 Alcoholic cirrhosis of liver without ascites; E87.5 Hyperkalemia; N40.0 Benign prostatic hyperplasia without lower urinary tract symptoms; K22.2 Esophageal obstruction; R13.14 Dysphagia, pharyngoesophageal phase; Z20.822 Contact with and (suspected) exposure to COVID-19; Z79.84 Long term (current) use of oral hypoglycemic drugs; Z79.899 Other long term (current) drug therapy